=== PATIENT | male | born 1990 | race Caucasian/White ===

== ENCOUNTER 2017-01-14 11:36 | Emergency (ER) | payer SELFPAY ==
[2017-01-14] MEDS ORDERED: PROPARACAINE 0.5% OPHTH DROPS 15 ML BTL RIGHT EYE STA (12:35)
[2017-01-14] MEDS ORDERED: TOBRAMYCIN 0.3% OPHTH DROPS 5 ML BTL RIGHT EYE STA (12:43)
--- NOTE | 2017-01-14 12:48 | ED ---
Eye Problem HPI - General Chief complaint: Eye Problems Stated complaint: FB in eye Time Seen by Provider: 01/14/17 12:21 Source: patient, RN notes reviewed Mode of arrival: ambulatory Limitations: no limitations - History of Present Illness Initial comments: 26-year-old male presents emergency Department chief complaint foreign body right eye. Patient states that something fell on to his right eye yesterday. He said irritation. Patient states she's had no visual changes. Patient's tetanus is up-to-date last 5 years. Patient states that he does have some photophobia. Patient has ALLERGIES sulfa products. - Related Data Home Medications Medication Instructions Recorded Confirmed Loratadine [Claritin] 10 mg PO DAILY 05/04/16 05/04/16 Previous Rx's Medication Instructions Recorded Doxycycline Monohydrate [Monodox] 100 mg PO Q12HR #14 cap 05/04/16 HYDROcodone/APAP 5-325MG [[place] 5] 1 each PO Q4HR PRN #20 tab 05/04/16 Naproxen [Naprosyn] 500 mg PO Q12HR #24 tab 05/04/16 Tobramycin [Tobrex 0.3% Ophth Soln] 1 drop RIGHT EYE Q4HR #5 ml 01/14/17 Allergies Allergy/AdvReac Type Severity Reaction Status Date / Time Sulfa (Sulfonamide Allergy Rash/Hives Verified 01/14/17 11:41 Antibiotics) Review of Systems ROS Statement: Those systems with pertinent positive or pertinent negative responses have been documented in the HPI. ROS Other: All systems not noted in ROS Statement are negative. Past Medical History Past Medical History: No Reported History History of Any Multi-Drug Resistant Organisms: None Reported Past Surgical History: No Surgical Hx Reported Past Psychological History: Depression Smoking Status: Current every day smoker Past Alcohol Use History: None Reported Past Drug Use History: Marijuana General Exam Limitations: no limitations General appearance: alert, in no apparent distress Head exam: Present: atraumatic, normocephalic, normal inspection Eye exam: Present: PERRL, EOMI, conjunctival injection (Moderate right), other ( No foreign body noted on initial exam. There is a corneal abrasion noted using for florescin and Wood's lamp). Absent: normal appearance, scleral icterus, periorbital swelling ENT exam: Present: normal exam, normal oropharynx, mucous membranes moist, TM's normal bilaterally, normal external ear exam Neck exam: Present: normal inspection, full ROM. Absent: tenderness, meningismus, lymphadenopathy Respiratory exam: Present: normal lung sounds bilaterally. Absent: respiratory distress, wheezes, rales, rhonchi, stridor Cardiovascular Exam: Present: regular rate, normal rhythm, normal heart sounds. Absent: systolic murmur, diastolic murmur, rubs, gallop, clicks Course Vital Signs 01/14/17 11:38 Temperature 97.6 F Pulse Rate 98 Respiratory 20 Rate Blood Pressure 135/83 O2 Sat by Pulse 99 Oximetry Medical Decision Making - Medical Decision Making 26-year-old male present emergency department with chief complaint right eye foreign body. Patient had complete relief of symptoms after Paracaine. Patient be discharged Tobrex eye drops. Patient will follow-up with on-call up though Dr. Del Cid. Return parameters were discussed. Disposition Clinical Impression: Corneal abrasion Disposition: HOME SELF-CARE Condition: Stable Instructions: Corneal Abrasion (ED) Additional Instructions: Please return to the Emergency Department if symptoms worsen or any other concerns. Prescriptions: Tobramycin [Tobrex 0.3% Ophth Soln] 1 drop RIGHT EYE Q4HR #5 ml Referrals: Geo Mai MD [Primary Care Provider] - 1-2 days Chaz Del Cid MD [STAFF PHYSICIAN] - 1-2 days Time of Disposition: 12:46
[2017-01-14 13:02] VITALS: BP 132/91; PULSE 77; RESP 16; TEMP 97.7
== END 2017-01-14 13:02 | disposition home or self-care (01) ==
LOC: EC 11:36
DX: S05.01XA Injury of conjunctiva and corneal abrasion without foreign body, right eye, initial encounter (principal); F17.200 Nicotine dependence, unspecified, uncomplicated; Z79.899 Other long term (current) drug therapy; Z88.2 Allergy status to sulfonamides; X58.XXXA Exposure to other specified factors, initial encounter
CPT/HCPCS: 99283

== ENCOUNTER 2017-04-17 10:45 | Emergency (ER) | payer OTHER ==
[2017-04-17 10:50] VITALS: BP 134/81; PULSE 75; RESP 18; TEMP 97.9
--- NOTE | 2017-04-17 11:21 | ED ---
General Adult HPI - General Chief complaint: Wound/Laceration Stated complaint: LACERATION IN LEFT INDEX FINGER Time Seen by Provider: 04/17/17 10:54 Source: patient, RN notes reviewed Mode of arrival: ambulatory Limitations: no limitations - History of Present Illness Initial comments: The patient [id number] male who presents emergency room today with a chief complaint of laceration to the left index finger. He does admit that he was using a hand saw, slipped causing this laceration. Patient states tetanus is up-to-date. Denies any other complaints associated symptoms. States he has full range of motion. - Related Data Home Medications Medication Instructions Recorded Confirmed Dextroamphetamine/Amphetamine 20 mg PO BID 04/17/17 04/17/17 [Adderall] Allergies Allergy/AdvReac Type Severity Reaction Status Date / Time Sulfa (Sulfonamide Allergy Rash/Hives Verified 04/17/17 11:12 Antibiotics) Review of Systems ROS Statement: Those systems with pertinent positive or pertinent negative responses have been documented in the HPI. ROS Other: All systems not noted in ROS Statement are negative. Past Medical History Past Medical History: No Reported History History of Any Multi-Drug Resistant Organisms: None Reported Past Surgical History: No Surgical Hx Reported Past Psychological History: Depression Smoking Status: Current every day smoker Past Alcohol Use History: None Reported Past Drug Use History: Marijuana General Exam - General Exam Comments Initial Comments: General: The patient is awake and alert, in no distress, and does not appear acutely ill. Neck: The neck is supple, there is no tenderness or JVD. Cardiovascular: There is a regular rate and rhythm. No murmur, rub or gallop is appreciated. Respiratory: Lungs are clear to auscultation, respirations are non-labored, breath sounds are equal. No wheezes, stridor, rales, or rhonchi. Musculoskeletal: Full range motion. Sensation intact. Pulses equal bilaterally 2+. Strength 5/5. Neurological: A&O x 3. CN II-XII intact, There are no obvious motor or sensory deficits. Coordination appears grossly intact. Speech is normal. Skin: Patient does have a 1.5 cm linear laceration running angle to the posterior aspect of the left proximal second digit. Psychiatric: Normal mood and affect. Limitations: no limitations Course Vital Signs 04/17/17 10:47 Temperature 97.9 F Pulse Rate 75 Respiratory 18 Rate Blood Pressure 134/81 O2 Sat by Pulse 99 Oximetry Procedures - Procedures Initial comment: 1.5 cm linear laceration running angle to the second left proximal digit. The skin was anesthetized with 1% lidocaine at the head of the metacarpal. The laceration was then cleansed with Betadine and irrigated with normal saline. The wound was inspected, and there was no evidence of injury to deep structures. No foreign body was noted in the wound. A total of 4 skin sutures were placed utilizing 5-0 nylon. Disposition Clinical Impression: Laceration Disposition: HOME SELF-CARE Condition: Good Instructions: Laceration (ED) Additional Instructions: Please return to the emergency room in 8-10 days to have sutures removed. Please watch for any signs of infection which may include increased pain, swelling, redness, fever or chills. Please return to emergency room for any signs of infection do occur. Please use clean soap and water over the area to prevent scabbing over your stitches. Please leave wound covered for the first 24-48 hours and then leave wound open to air. Please return to the emergency room for any other concerns. Referrals: Geo Mai MD [Primary Care Provider] - 1-2 days Time of Disposition: 11:21
== END 2017-04-17 11:36 | disposition home or self-care (01) ==
LOC: EC 10:45
DX: S61.211A Laceration without foreign body of left index finger without damage to nail, initial encounter (principal); F17.200 Nicotine dependence, unspecified, uncomplicated; Z79.899 Other long term (current) drug therapy; Z88.2 Allergy status to sulfonamides; W27.0XXA Contact with workbench tool, initial encounter
CPT/HCPCS: 12001; 99282

== ENCOUNTER 2017-06-10 19:06 | Emergency (ER) | payer OTHER ==
[2017-06-10 19:27] VITALS: BP 133/71; PULSE 65; RESP 18; TEMP 97.5
[2017-06-10] MEDS ORDERED: AZITHROMYCIN 500 MG TAB PO STA (19:45)
[2017-06-10] MEDS ORDERED: cefTRIAXone 250 MG VIAL IM STA (19:45)
--- NOTE | 2017-06-10 19:45 | ED ---
General Adult HPI - General Chief complaint: Urogenital Stated complaint: STD testing Time Seen by Provider: 06/10/17 19:37 Source: patient, RN notes reviewed Mode of arrival: ambulatory Limitations: no limitations - History of Present Illness Initial comments: 26-year-old male presents to the emergency Department chief complaint of concern for STD. Patient was informed by his partner that they are positive for an STD. Patient denies any symptoms at this time. Patient states he just like to be tested and treated.Patient denies any recent fever, chills, shortness of breath, chest pain, back pain, abdominal pain, nausea vomiting, numbness or tingling, dysuria or hematuria, constipation or diarrhea, headaches or visual changes, or any other current symptoms. - Related Data Home Medications Medication Instructions Recorded Confirmed Dextroamphetamine/Amphetamine 20 mg PO BID 04/17/17 04/17/17 [Adderall] Allergies Allergy/AdvReac Type Severity Reaction Status Date / Time Sulfa (Sulfonamide Allergy Rash/Hives Verified 06/10/17 19:26 Antibiotics) Review of Systems ROS Statement: Those systems with pertinent positive or pertinent negative responses have been documented in the HPI. ROS Other: All systems not noted in ROS Statement are negative. Past Medical History Past Medical History: No Reported History History of Any Multi-Drug Resistant Organisms: None Reported Past Surgical History: No Surgical Hx Reported Past Psychological History: Depression Smoking Status: Former smoker Past Alcohol Use History: None Reported Past Drug Use History: Marijuana General Exam Limitations: no limitations General appearance: alert Head exam: Present: atraumatic, normocephalic, normal inspection Eye exam: Present: normal appearance, PERRL, EOMI. Absent: scleral icterus, conjunctival injection, periorbital swelling ENT exam: Present: normal exam, mucous membranes moist Neck exam: Present: normal inspection. Absent: tenderness, meningismus, lymphadenopathy Respiratory exam: Present: normal lung sounds bilaterally. Absent: respiratory distress, wheezes, rales, rhonchi, stridor Cardiovascular Exam: Present: regular rate, normal rhythm, normal heart sounds. Absent: systolic murmur, diastolic murmur, rubs, gallop, clicks Neurological exam: Present: alert, oriented X3 Psychiatric exam: Present: normal affect, normal mood Skin exam: Present: warm, dry, intact, normal color. Absent: rash Course Vital Signs 06/10/17 19:25 Temperature 97.5 F L Pulse Rate 65 Respiratory 18 Rate Blood Pressure 133/71 O2 Sat by Pulse 98 Oximetry Medical Decision Making - Medical Decision Making 26-year-old male presents concern for STDs. This time we did the patient for flexion. Discussed follow-up on results. We discussed return parameters and all questions. Patient stated he understood the plan. He will be discharged. Disposition Clinical Impression: Concern about STD in male without diagnosis Disposition: HOME SELF-CARE Condition: Stable Instructions: Sexually Transmitted Diseases (ED) Additional Instructions: Please use medication as discussed. Please follow up with family doctor if symptoms have not improved over the next two days. Please return to the emergency room if your symptoms increase or worsen or for any other concerns. Referrals: Geo Mai MD [Primary Care Provider] - 1-2 days Time of Disposition: 19:45
== END 2017-06-10 19:58 | disposition home or self-care (01) ==
LOC: EC 19:06
DX: Z11.3 Encounter for screening for infections with a predominantly sexual mode of transmission (principal); Z87.891 Personal history of nicotine dependence; Z88.2 Allergy status to sulfonamides; Z79.899 Other long term (current) drug therapy
CPT/HCPCS: 87591; 87491; 87070; 99282; 96372; J0696; 87205

== ENCOUNTER 2018-07-09 15:16 | Emergency (ER) | payer OTHER ==
[2018-07-09 16:09] VITALS: RESP 16
[2018-07-09] MEDS ORDERED: cefTRIAXone 250 MG VIAL IM STA (17:06)
[2018-07-09] MEDS ORDERED: AZITHROMYCIN 500 MG TAB PO STA (17:07)
--- NOTE | 2018-07-09 17:07 | ED ---
Male Urogenital HPI - General Chief complaint: Urogenital Stated complaint: groin pain Time Seen by Provider: 07/09/18 16:35 Source: patient, RN notes reviewed, old records reviewed Mode of arrival: ambulatory Limitations: no limitations - History of Present Illness Initial comments: 27-year-old male presents emergency department today with chief complaint of right-sided groin pain. He reports having this pain for the past 2-3 days. He reports it is a lot of heavy weightlifting with his job. Patient states that he 's had frequent urination. He reports the past that he was diagnosed with sexual transmitted infection but no cyanosis or hernia. Patient states that the pain seems to stay on the right side of his groin and scrotum. Not worse with ambulation. He denies any nausea vomiting or diarrhea. Denies any fevers or chills. MD Complaint: testicle pain - Related Data Home Medications Medication Instructions Recorded Confirmed No Known Home Medications 07/09/18 07/09/18 Allergies Allergy/AdvReac Type Severity Reaction Status Date / Time Sulfa (Sulfonamide Allergy Rash/Hives Verified 07/09/18 16:53 Antibiotics) Review of Systems ROS Statement: Those systems with pertinent positive or pertinent negative responses have been documented in the HPI. ROS Other: All systems not noted in ROS Statement are negative. Past Medical History Past Medical History: No Reported History History of Any Multi-Drug Resistant Organisms: None Reported Past Surgical History: No Surgical Hx Reported Additional Past Surgical History / Comment(s): wisdom teeth. Past Psychological History: Depression Smoking Status: Former smoker Past Alcohol Use History: None Reported Past Drug Use History: Marijuana General Exam - General Exam Comments Initial Comments: 27-year-old male. Alert and oriented. No distress. Limitations: no limitations Head exam: Present: atraumatic, normocephalic, normal inspection Eye exam: Present: normal appearance, PERRL, EOMI. Absent: scleral icterus, conjunctival injection, periorbital swelling ENT exam: Present: normal exam, mucous membranes moist Neck exam: Present: normal inspection. Absent: tenderness, meningismus, lymphadenopathy Respiratory exam: Present: normal lung sounds bilaterally. Absent: respiratory distress, wheezes, rales, rhonchi, stridor Cardiovascular Exam: Present: regular rate, normal rhythm, normal heart sounds. Absent: systolic murmur, diastolic murmur, rubs, gallop, clicks GI/Abdominal exam: Present: soft, normal bowel sounds. Absent: distended, tenderness, guarding, rebound, rigid exam: Present: normal inspection, testicular tenderness (Left testicular tenderness, Palpable reducible inguinal hernia on L scrotal canal with coughing. ) Extremities exam: Present: normal inspection, full ROM, normal capillary refill. Absent: tenderness, pedal edema, joint swelling, calf tenderness Back exam: Present: normal inspection Neurological exam: Present: alert, oriented X3, CN II-XII intact Psychiatric exam: Present: normal affect, normal mood Skin exam: Present: warm, dry, intact, normal color. Absent: rash Course Vital Signs 07/09/18 16:06 Temperature 98.2 F Pulse Rate 61 Respiratory 16 Rate Blood Pressure 132/81 O2 Sat by Pulse 100 Oximetry Medical Decision Making - Medical Decision Making 27-year-old male presents emergency department today with chief complaint of right-sided scrotal and groin pain. On exam he had no significant tenderness on the groin. I do appreciate what I feel to be a left inguinal hernia. Patient has some ascites testicular tenderness as well. He is concern for STD. Urinalysis at this time is clear. However will treat the Patient for Rocephin and azithromycin with his concern for STD. Scrotal ultrasound was completed and negative for any acute process. At this time after examination he does report he is in significant pain and tender. Given dose of pain medication. Discussed his close follow-up with primary care physician and on- call surgeon for permanent feel to be inguinal hernia. Patient history plan will comply. Return parameters were discussed. - Lab Data Lab Results 07/09/18 Range/Units 17:08 Urine Color Light Yellow Urine Appearance Clear (Clear) Urine pH 6.0 (5.0-8.0) Ur Specific [place] 1.011 (1.001-1.035) Urine Protein Negative (Negative) Urine Glucose (UA) Negative (Negative) Urine Ketones Negative (Negative) Urine Blood Negative (Negative) Urine Nitrite Negative (Negative) Urine Bilirubin Negative (Negative) Urine Urobilinogen <2.0 (<2.0) mg/dL Ur Leukocyte Esterase Negative (Negative) Disposition Clinical Impression: Groin strain, Reducible left inguinal hernia Disposition: HOME SELF-CARE Condition: Good Instructions: Groin Strain (ED) Additional Instructions: Patient advised to follow-up with primary care physician and surgeon. Return to the emergency department if any alarming signs or symptoms occur. Is patient prescribed a controlled substance at d/c from ED?: No Referrals: Geo Mai MD [Primary Care Provider] - 1-2 days Colleen Medina MD [STAFF PHYSICIAN] - 1-2 days Time of Disposition: 18:41
[2018-07-09 17:22] LABS: Appearance,Urine Clear (Clear); Bilirubin,Urine Negative (Negative); Blood,Urine Negative (Negative); Color,Urine Light Yellow; Glucose,Urine (UA) Negative (Negative); Ketones,Urine Negative (Negative); Leukocyte Esterase,Urine Negative (Negative); Nitrite,Urine Negative (Negative); Protein,Urine Negative (Negative); Specific Gravity,Urine 1.011 (1.001-1.035); Urobilinogen,Urine <2.0 mg/dL (<2.0)
--- NOTE | 2018-07-09 18:30 | US ---
EXAMINATION TYPE: US scrotum with doppler. Grayscale and color Doppler Duplex imaging performed of t cesar scrotum. DATE OF EXAM: 07/09/2018 COMPARISON: NONE CLINICAL HISTORY: Pain. Bilateral pain EXAM MEASUREMENTS: TESTICLES: Right Testicle: 2.9 x 2.8 x 3.3 cm Left Testicle: 3.5 x 2.6 x 3.9 cm EPIDIDYMIS HEAD: Right Epididymis: Not well visualized. Left Epididymis: Not well visualized. Doppler performed to assess for testicular vascularity; good bilateral color flow and waveforms are s een. There is no evidence of testicular torsion. Presence of hydroceles: Small amount of fluid seen bilaterally. Presence of varicoceles: No IMPRESSION: NO ACUTE PROCESS.
[2018-07-09] MEDS ORDERED: ACET/COD 300 MG/30 MG STARTER PACK 6 TAB BTL PO STA (18:48)
[2018-07-09 19:04] VITALS: BP 130/78; PULSE 78; TEMP 97.9
== END 2018-07-09 19:02 | disposition home or self-care (01) ==
LOC: EC 15:16
DX: S39.011A Strain of muscle, fascia and tendon of abdomen, initial encounter (principal); K40.90 Unilateral inguinal hernia, without obstruction or gangrene, not specified as recurrent; Z88.2 Allergy status to sulfonamides; Z87.891 Personal history of nicotine dependence; X50.0XXA Overexertion from strenuous movement or load, initial encounter; Y92.69 Other specified industrial and construction area as the place of occurrence of the external cause; Y99.0 Civilian activity done for income or pay
CPT/HCPCS: 81003; 87491; 87591; 93975; 76870; 99284; 96372; J0696

== ENCOUNTER 2019-02-19 21:16 | Emergency (ER) | payer OTHER ==
[2019-02-19 22:23] VITALS: TEMP 98.8
[2019-02-19] MEDS ORDERED: SODIUM CHLORIDE 0.9% 1,000 ML IV STA (23:00)
[2019-02-19] MEDS ORDERED: HYDROmorphone 0.5 MG/0.5 ML SYRINGE IVP STA (23:00)
[2019-02-19] MEDS ORDERED: ONDANSETRON 4 MG/2 ML VIAL IVP STA (23:00)
--- NOTE | 2019-02-19 23:15 | ED ---
Abdominal Pain HPI - General Chief Complaint: Abdominal Pain Stated Complaint: Hernia Time Seen by Provider: 02/19/19 22:37 Source: patient Mode of arrival: ambulatory Limitations: no limitations - History of Present Illness Initial Comments: 28-year-old male patient with a known right inguinal hernia diagnosed in June presents to the emergency department today for evaluation of severe lower abdominal pain. Patient states he always has pain around a 3-4 out of 10 on the pain scale to the right inguinal region. Patient states that the pain today has been significantly worse at 8-9 out of 10 on the pain scale. Patient states he has been nauseated but has not vomited. States she's been unable to eat and drink. States he has had some chills but denies any fever. Patient states that he feels like he has to push harder to urinate. Denies any hematuria or dysuria. Denies any back pain. States he is passing gas but has not had a bowel movement today. Patient denies any recent rash, shortness breath, chest pain, back pain, numbness, tingling, dizziness, weakness, headache, visual changes, or any other complaints. - Related Data Previous Rx's Medication Instructions Recorded Dicyclomine [Bentyl] 20 mg PO QID #12 tablet 02/20/19 Allergies Allergy/AdvReac Type Severity Reaction Status Date / Time Sulfa (Sulfonamide Allergy Rash/Hives Verified 02/19/19 22:30 Antibiotics) Review of Systems ROS Statement: Those systems with pertinent positive or pertinent negative responses have been documented in the HPI. ROS Other: All systems not noted in ROS Statement are negative. Past Medical History Past Medical History: No Reported History Additional Past Medical History / Comment(s): hernia History of Any Multi-Drug Resistant Organisms: None Reported Past Surgical History: No Surgical Hx Reported Additional Past Surgical History / Comment(s): wisdom teeth. Past Psychological History: Depression Smoking Status: Former smoker Past Alcohol Use History: None Reported Past Drug Use History: Marijuana General Exam Limitations: no limitations General appearance: alert, in no apparent distress, other (Physical well- developed, well-nourished adult male patient in no acute distress. Vital signs upon presentation are temperature 98.8F, pulse 95, respirations 20, blood pre ssure 112/69, pulse ox 99% on room air.) Eye exam: Present: normal appearance, PERRL, EOMI. Absent: scleral icterus, conjunctival injection, periorbital swelling ENT exam: Present: normal exam, normal oropharynx, mucous membranes moist Respiratory exam: Present: normal lung sounds bilaterally. Absent: respiratory distress, wheezes, rales, rhonchi, stridor Cardiovascular Exam: Present: regular rate, normal rhythm, normal heart sounds. Absent: systolic murmur, diastolic murmur, rubs, gallop, clicks GI/Abdominal exam: Present: soft, tenderness (Generalized lower abdominal tenderness, worse over the right lower quadrant and right groin.), guarding, normal bowel sounds. Absent: distended, rebound, rigid Neurological exam: Present: alert, oriented X3, CN II-XII intact Psychiatric exam: Present: normal affect, normal mood Skin exam: Present: warm, dry, intact, normal color. Absent: rash Course Vital Signs 02/19/19 02/20/19 22:20 01:12 Temperature 98.8 F Pulse Rate 95 93 Respiratory 20 18 Rate Blood Pressure 112/69 114/70 O2 Sat by Pulse 99 99 Oximetry Medical Decision Making - Medical Decision Making 28-year-old male patient presented to the emergency department today for evaluation of lower abdominal pain. Patient has known right inguinal hernia and is waiting for his insurance to go through to have the surgery. Patient states the pain increased today. Physical examination did reveal lower abdominal tenderness and guarding. Right groin tenderness. Labs reviewed and are unremarkable. Lactic acid negative. CT abdomen and pelvis with contrast was ob tained to rule out appendicitis and hernia incarceration, CAT scan showed evidence for diffusely fluid filled small bowel loops consistent with gastroenteritis. No evidence for acute appendicitis. Incarceration of the hernia is unlikely, this is not mentioned on CT and lactic acid was negative. D id discuss findings and results with the patient was given Bentyl for pain control. He is instructed to follow-up with his primary care physician for recheck in 1-2 days. Return parameters were discussed in detail. He verbalizes understanding and agrees with this plan. - Lab Data Result diagrams: 02/19/19 23:40 02/19/19 23:40 Lab Results 02/19/19 02/19/19 02/19/19 Range/Units 23:20 23:40 23:40 WBC 8.1 (3.8-10.6) k/uL RBC 4.51 (4.30-5.90) m/uL Hgb 13.6 (13.0-17.5) gm/dL Hct 38.9 L (39.0-53.0) % MCV 86.2 (80.0-100.0) fL MCH 30.2 (25.0-35.0) pg MCHC 35.0 (31.0-37.0) g/dL RDW 15.0 (11.5-15.5) % Plt Count 249 (150-450) k/uL Neutrophils % 77 % Lymphocytes % 13 % Monocytes % 5 % Eosinophils % 3 % Basophils % 0 % Neutrophils # 6.2 (1.3-7.7) k/uL Lymphocytes # 1.1 (1.0-4.8) k/uL Monocytes # 0.4 (0-1.0) k/uL Eosinophils # 0.3 (0-0.7) k/uL Basophils # 0.0 (0-0.2) k/uL Sodium 142 (137-145) mmol/L Potassium 4.3 (3.5-5.1) mmol/L Chloride 105 (98-107) mmol/L Carbon Dioxide 28 (22-30) mmol/L Anion Gap 9 mmol/L BUN 19 (9-20) mg/dL Creatinine 1.00 (0.66-1.25) mg/dL Est GFR (CKD-EPI)AfAm >90 (>60 ml/min/1.73 sqM) Est GFR (CKD-EPI)NonAf >90 (>60 ml/min/1.73 sqM) Glucose 93 (74-99) mg/dL Plasma Lactic Acid Ethan (0.7-2.0) mmol/L Calcium 10.0 (8.4-10.2) mg/dL Total Bilirubin 0.8 (0.2-1.3) mg/dL AST 18 (17-59) U/L ALT 27 (21-72) U/L Alkaline Phosphatase 49 (38-126) U/L Total Protein 7.8 (6.3-8.2) g/dL Albumin 4.7 (3.5-5.0) g/dL Amylase 60 (30-110) U/L Lipase 72 (23-300) U/L Urine Color Yellow Urine Appearance Clear (Clear) Urine pH 6.0 (5.0-8.0) Ur Specific [place] 1.030 (1.001-1.035) Urine Protein Trace H (Negative) Urine Glucose (UA) Negative (Negative) Urine Ketones Negative (Negative) Urine Blood Negative (Negative) Urine Nitrite Negative (Negative) Urine Bilirubin Negative (Negative) Urine Urobilinogen 3.0 (<2.0) mg/dL Ur Leukocyte Esterase Negative (Negative) 02/19/19 Range/Units 23:40 WBC (3.8-10.6) k/uL RBC (4.30-5.90) m/uL Hgb (13.0-17.5) gm/dL Hct (39.0-53.0) % MCV (80.0-100.0) fL MCH (25.0-35.0) pg MCHC (31.0-37.0) g/dL RDW (11.5-15.5) % Plt Count (150-450) k/uL Neutrophils % % Lymphocytes % % Monocytes % % Eosinophils % % Basophils % % Neutrophils # (1.3-7.7) k/uL Lymphocytes # (1.0-4.8) k/uL Monocytes # (0-1.0) k/uL Eosinophils # (0-0.7) k/uL Basophils # (0-0.2) k/uL Sodium (137-145) mmol/L Potassium (3.5-5.1) mmol/L Chloride (98-107) mmol/L Carbon Dioxide (22-30) mmol/L Anion Gap mmol/L BUN (9-20) mg/dL Creatinine (0.66-1.25) mg/dL Est GFR (CKD-EPI)AfAm (>60 ml/min/1.73 sqM) Est GFR (CKD-EPI)NonAf (>60 ml/min/1.73 sqM) Glucose (74-99) mg/dL Plasma Lactic Acid Ethan 0.7 (0.7-2.0) mmol/L Calcium (8.4-10.2) mg/dL Total Bilirubin (0.2-1.3) mg/dL AST (17-59) U/L ALT (21-72) U/L Alkaline Phosphatase (38-126) U/L Total Protein (6.3-8.2) g/dL Albumin (3.5-5.0) g/dL Amylase (30-110) U/L Lipase (23-300) U/L Urine Color Urine Appearance (Clear) Urine pH (5.0-8.0) Ur Specific [place] (1.001-1.035) Urine Protein (Negative) Urine Glucose (UA) (Negative) Urine Ketones (Negative) Urine Blood (Negative) Urine Nitrite (Negative) Urine Bilirubin (Negative) Urine Urobilinogen (<2.0) mg/dL Ur Leukocyte Esterase (Negative) - Radiology Data Radiology results: report reviewed, image reviewed CT abdomen and pelvis was obtained with contrast. The patient in its entirety. Impression by Dr. Mast shows diffusely fluid filled small bowel with hyperemia, correlate with gastroenteritis. Disposition Clinical Impression: Abdominal pain Disposition: HOME SELF-CARE Condition: Good Instructions (If sedation given, give patient instructions): Abdominal Pain (ED) Additional Instructions: Start with clear liquid diet and advance tolerated. Take medications as directed. Follow-up through primary care physician for recheck in 1-2 days. Return to the emergency department immediately for any new, worsening, or concerning symptoms. Prescriptions: Dicyclomine [Bentyl] 20 mg PO QID #12 tablet Is patient prescribed a controlled substance at d/c from ED?: No Referrals: Geo Mai MD [Primary Care Provider] - 1-2 days Time of Disposition: 00:55
[2019-02-20 00:12] LABS: Basophils % (A) 0 %; Eosinophils # (A) 0.3 k/uL (0-0.7); Eosinophils % (A) 3 %; HCT 38.9 % (39.0-53.0); HGB 13.6 gm/dL (13.0-17.5); Lymphocytes # (A) 1.1 k/uL (1.0-4.8); Lymphocytes % (A) 13 %; MCH 30.2 pg (25.0-35.0); MCV 86.2 fL (80.0-100.0); Mean Platelet Volume 8.9; Monocytes # (A) 0.4 k/uL (0-1.0); Monocytes % (A) 5 %; Neutrophils # (A) 6.2 k/uL (1.3-7.7); Neutrophils % (A) 77 %; Platelet Count 249 k/uL (150-450); RBC 4.51 m/uL (4.30-5.90); WBC 8.1 k/uL (3.8-10.6)
--- NOTE | 2019-02-20 00:22 | CT ---
EXAM: CT Abdomen and Pelvis With Intravenous Contrast CLINICAL HISTORY: ITS.REASON CT Reason: Pain TECHNIQUE: Axial computed tomography images of the abdomen and pelvis with intravenous contrast. CTDI is 14 mGy and DLP is 585 mGy-cm. This CT exam was performed using one or more of the following dose reduction techniques: automated exposure control, adjustment of the mA and/or kV according to patient size, and/or use of iterative reconstruction technique. COMPARISON: No relevant prior studies available. FINDINGS: Lung bases: No mass. No consolidation. ABDOMEN: Liver: Unremarkable. Gallbladder and bile ducts: Unremarkable. Pancreas: Unremarkable. Spleen: Unremarkable. Adrenals: Unremarkable. Kidneys and ureters: No hydronephrosis. Stomach and bowel: No bowel obstruction or bowel wall thickening. Diffusely fluid-filled small bowel with hyperemia. PELVIS: Appendix: No evidence of appendicitis. Bladder: Unremarkable. Reproductive: Unremarkable. ABDOMEN and PELVIS: Intraperitoneal space: Unremarkable. Bones/joints: No acute fractures. Soft tissues: Unremarkable. Vasculature: No abdominal aortic aneurysm. Lymph nodes: No enlarged lymph nodes. IMPRESSION: Diffusely fluid-filled small bowel with hyperemia, correlate with gastroenteritis.
[2019-02-20 00:28] LABS: Appearance,Urine Clear (Clear); Bilirubin,Urine Negative (Negative); Blood,Urine Negative (Negative); Color,Urine Yellow; Glucose,Urine (UA) Negative (Negative); Ketones,Urine Negative (Negative); Leukocyte Esterase,Urine Negative (Negative); Nitrite,Urine Negative (Negative); Protein,Urine Trace (Negative)
[2019-02-20 00:39] LABS: ALT 27 U/L (21-72); AST 18 U/L (17-59); Albumin 4.7 g/dL (3.5-5.0); Alkaline Phosphatase 49 U/L (38-126); Amylase 60 U/L (30-110); Anion Gap 9 mmol/L; Blood Urea Nitrogen 19 mg/dL (9-20); Carbon Dioxide 28 mmol/L (22-30); Chloride 105 mmol/L (98-107); Glucose 93 mg/dL (74-99); Lipase 72 U/L (23-300); Potassium 4.3 mmol/L (3.5-5.1); Sodium 142 mmol/L (137-145); Total Bilirubin 0.8 mg/dL (0.2-1.3); Total Protein 7.8 g/dL (6.3-8.2)
[2019-02-20] MEDS ORDERED: DICYCLOMINE 20 MG TAB PO STA (00:55)
[2019-02-20 01:16] VITALS: BP 114/70; PULSE 93; RESP 18
== END 2019-02-20 01:12 | disposition home or self-care (01) ==
LOC: EC 21:16
DX: K52.9 Noninfective gastroenteritis and colitis, unspecified (principal); Z87.19 Personal history of other diseases of the digestive system; Z87.891 Personal history of nicotine dependence; Z88.2 Allergy status to sulfonamides
CPT/HCPCS: 36415; 80053; 82150; 83605; 83690; 85025; 81003; 74177; 99284; 96374; 96375; 96361; J2405; J1170; Q9967

== ENCOUNTER 2019-03-08 18:31 | Emergency (ER) | payer OTHER ==
[2019-03-08 19:00] VITALS: TEMP 98.2
[2019-03-08] MEDS ORDERED: ONDANSETRON 4 MG/2 ML VIAL IVP STA (19:12)
[2019-03-08] MEDS ORDERED: MORPHINE SULFATE 4 MG/ML SYRINGE IVP STA (19:12)
[2019-03-08] MEDS ORDERED: HYDROmorphone 1 MG/ML 1 ML SYRINGE IVP STA ×2 (19:33→20:37)
[2019-03-08 19:40] LABS: Basophils % (A) 0 %; Eosinophils # (A) 0.1 k/uL (0-0.7); Eosinophils % (A) 0 %; HCT 38.6 % (39.0-53.0); HGB 13.4 gm/dL (13.0-17.5); Lymphocytes # (A) 1.4 k/uL (1.0-4.8); Lymphocytes % (A) 10 %; MCH 30.4 pg (25.0-35.0); MCHC 34.7 g/dL (31.0-37.0); MCV 87.4 fL (80.0-100.0); Mean Platelet Volume 7.1; Monocytes # (A) 0.5 k/uL (0-1.0); Monocytes % (A) 4 %; Neutrophils # (A) 12.2 k/uL (1.3-7.7); Neutrophils % (A) 86 %; Platelet Count 333 k/uL (150-450); RBC 4.41 m/uL (4.30-5.90); WBC 14.2 k/uL (3.8-10.6)
[2019-03-08 19:47] LABS: ALT 25 U/L (21-72); AST 16 U/L (17-59); Albumin 4.6 g/dL (3.5-5.0); Alkaline Phosphatase 45 U/L (38-126); Anion Gap 9 mmol/L; Blood Urea Nitrogen 21 mg/dL (9-20); Calcium 10.2 mg/dL (8.4-10.2); Carbon Dioxide 25 mmol/L (22-30); Chloride 106 mmol/L (98-107); Glucose 104 mg/dL (74-99); Potassium 4.4 mmol/L (3.5-5.1); Sodium 140 mmol/L (137-145); Total Bilirubin 0.4 mg/dL (0.2-1.3); Total Protein 7.5 g/dL (6.3-8.2)
[2019-03-08 19:51] LABS: Prothrombin Time 10.4 sec (9.0-12.0)
--- NOTE | 2019-03-08 20:04 | US ---
EXAMINATION TYPE: US scrotum with doppler. Grayscale and color Doppler Duplex imaging performed of mary guerrero scrotum. DATE OF EXAM: 03/08/2019 COMPARISON: 07/09/2018 CLINICAL HISTORY: Pain. Left side hernia surgery this morning. Left testicle severe pain, bruising an d swelling. R/O torsion EXAM MEASUREMENTS: TESTICLES: Right Testicle: 4.5 x 2.0 x 3.5 cm Left Testicle: 4.1 x 2.6 x 3.1 cm EPIDIDYMIS HEAD: Right Epididymis: 1.4 x .7 x .8 cm Left Epididymis: .8 x .7 cm Doppler performed to assess for testicular vascularity; good bilateral color flow and waveforms are s een. There is no evidence of testicular torsion. Presence of hydroceles: No Presence of varicoceles: No IMPRESSION: Negative exam. No testicular torsion or mass. No significant fluid.
--- NOTE | 2019-03-08 20:22 | ED ---
Male Urogenital HPI <Sukhdev Goodrich - Last Filed: 03/08/19 21:00> - General Source: patient, RN notes reviewed, old records reviewed Mode of arrival: ambulatory Limitations: no limitations <Ina Carrero - Last Filed: 03/09/19 08:47> - General Chief complaint: Urogenital Stated complaint: post op hernia pain, male gu Time Seen by Provider: 03/08/19 19:05 - History of Present Illness Initial comments: Patient is a 28-year-old male who presents emergency Department today with complaint of onset of left testicular pain, and noticing blue discoloration over his left side of his scrotum for the past 2 hours. Patient states that his symptoms started today after he a left inguinal hernia repair surgery. This was done by Dr. Mcintosh. Patient reports he is able to urinate today. (Ina Carrero) - Related Data Home Medications Medication Instructions Recorded Confirmed Dicyclomine [Bentyl] 20 mg PO QID PRN 03/08/19 03/08/19 [place](Unknown) 1 tab PO ONCE 03/08/19 03/08/19 Allergies Allergy/AdvReac Type Severity Reaction Status Date / Time Sulfa (Sulfonamide Allergy Rash/Hives Verified 03/08/19 19:08 Antibiotics) Review of Systems ROS Other: All systems not noted in ROS Statement are negative. <Sukhdev Goodrich - Last Filed: 03/08/19 21:00> ROS Other: All systems not noted in ROS Statement are negative. <Ina Carrero - Last Filed: 03/09/19 08:47> ROS Statement: Those systems with pertinent positive or pertinent negative responses have been documented in the HPI. Past Medical History Past Medical History: No Reported History Additional Past Medical History / Comment(s): hernia History of Any Multi-Drug Resistant Organisms: None Reported Past Surgical History: Hernia Repair Additional Past Surgical History / Comment(s): wisdom teeth. Past Psychological History: Depression Smoking Status: Former smoker Past Alcohol Use History: None Reported Past Drug Use History: Marijuana <Ina Carrero - Last Filed: 03/09/19 08:47> General Exam Limitations: no limitations General appearance: alert, in no apparent distress Head exam: Present: atraumatic, normocephalic, normal inspection Eye exam: Present: normal appearance, PERRL, EOMI. Absent: scleral icterus, conjunctival injection, periorbital swelling ENT exam: Present: normal exam, mucous membranes moist Neck exam: Present: normal inspection. Absent: tenderness, meningismus, lymphadenopathy Respiratory exam: Present: normal lung sounds bilaterally. Absent: respiratory distress, wheezes, rales, rhonchi, stridor Cardiovascular Exam: Present: regular rate, normal rhythm, normal heart sounds. Absent: systolic murmur, diastolic murmur, rubs, gallop, clicks GI/Abdominal exam: Present: soft, normal bowel sounds, other. Absent: distended, tenderness, guarding, rebound, rigid, hernia (Incision site over the left inguinal region from recent hernia repair.) exam: Present: scrotal swelling (Some minimal left-sided scrotal swelling with evidence of ecchymosis over the left side of the scrotum. Testicular tenderness noted.). Absent: normal inspection Extremities exam: Present: normal inspection, full ROM, normal capillary refill. Absent: tenderness, pedal edema, joint swelling, calf tenderness Back exam: Present: normal inspection Neurological exam: Present: alert, oriented X3, CN II-XII intact <Ina Carrero - Last Filed: 03/09/19 08:47> - General Exam Comments Initial Comments: 28-year-old male. Patient appears in significant distress. (Ina Carrero) Course Vital Signs 03/08/19 03/08/19 03/08/19 18:56 19:43 21:55 Temperature 98.2 F Pulse Rate 74 77 Respiratory 18 16 Rate Blood Pressure 126/78 131/86 123/86 O2 Sat by Pulse 99 100 Oximetry Medical Decision Making - Lab Data Result diagrams: 03/08/19 19:25 03/08/19 19:25 <Sukhdev Goodrich - Last Filed: 03/08/19 21:00> - Lab Data Result diagrams: 03/08/19 19:25 03/08/19 19:25 - Radiology Data Radiology results: report reviewed <Ina Carrero - Last Filed: 03/09/19 08:47> - Medical Decision Making 28-year-old male presents for his arm today with complaints of left testicular bluish discoloration significant tenderness after left inguinal hernia repair. This is number Dr. Mckeon at [place]. A stat ultrasound was completed and this is negative for torsion. With recent surgery will have Patient have a CT of the abdomen and pelvis. Patient case transferred to Dr. Goodrich at 8:30 pm. (Ina Carrero) - Lab Data Lab Results 03/08/19 03/08/19 03/08/19 Range/Units 19:25 19:25 19:25 WBC 14.2 H (3.8-10.6) k/uL RBC 4.41 (4.30-5.90) m/uL Hgb 13.4 (13.0-17.5) gm/dL Hct 38.6 L (39.0-53.0) % MCV 87.4 (80.0-100.0) fL MCH 30.4 (25.0-35.0) pg MCHC 34.7 (31.0-37.0) g/dL RDW 13.0 (11.5-15.5) % Plt Count 333 (150-450) k/uL Neutrophils % 86 % Lymphocytes % 10 % Monocytes % 4 % Eosinophils % 0 % Basophils % 0 % Neutrophils # 12.2 H (1.3-7.7) k/uL Lymphocytes # 1.4 (1.0-4.8) k/uL Monocytes # 0.5 (0-1.0) k/uL Eosinophils # 0.1 (0-0.7) k/uL Basophils # 0.0 (0-0.2) k/uL PT 10.4 (9.0-12.0) sec INR 1.0 (<1.2) APTT 25.0 (22.0-30.0) sec Sodium 140 (137-145) mmol/L Potassium 4.4 (3.5-5.1) mmol/L Chloride 106 (98-107) mmol/L Carbon Dioxide 25 (22-30) mmol/L Anion Gap 9 mmol/L BUN 21 H (9-20) mg/dL Creatinine 1.12 (0.66-1.25) mg/dL Est GFR (CKD-EPI)AfAm >90 (>60 ml/min/1.73 sqM) Est GFR (CKD-EPI)NonAf 90 (>60 ml/min/1.73 sqM) Glucose 104 H (74-99) mg/dL Calcium 10.2 (8.4-10.2) mg/dL Total Bilirubin 0.4 (0.2-1.3) mg/dL AST 16 L (17-59) U/L ALT 25 (21-72) U/L Alkaline Phosphatase 45 (38-126) U/L Total Protein 7.5 (6.3-8.2) g/dL Albumin 4.6 (3.5-5.0) g/dL - Radiology Data Doppler US is negative for torsion. CT abdomen and pelvis shows recent surgery site in left inguinal region, no abscess or hematoma. (Ina Carrero) Disposition Is patient prescribed a controlled substance at d/c from ED?: No <Sukhdev Goodrich - Last Filed: 03/08/19 21:00> <Ina Carrero - Last Filed: 03/09/19 08:47> Clinical Impression: Postoperative pain Disposition: HOME SELF-CARE Condition: Good Instructions (If sedation given, give patient instructions): Pain Management (ED) Referrals: Geo Mai MD [Primary Care Provider] - 1-2 days
[2019-03-08] MEDS ORDERED: HYDROmorphone 0.5 MG/0.5 ML SYRINGE IVP STA (20:25)
--- NOTE | 2019-03-08 20:57 | CT ---
EXAMINATION TYPE: CT abdomen pelvis w con DATE OF EXAM: 03/08/2019 COMPARISON: 02/20/2019 HISTORY: Testicular pain, Hernia repair sx today CT DLP: 695.5 mGycm Automated exposure control for dose reduction was used. TECHNIQUE: Helical acquisition of images was performed from the lung bases through the pelvis. CONTRAST: Performed without Oral Contrast and with IV Contrast, patient injected with 100 mL of Isovue 300. FINDINGS: Lung bases are clear. There is no pleural effusion. Heart size is normal. Stomach liver spleen pancreas gallbladder appear normal. Bile ducts are not dilated. There is no adre nal mass. Kidneys show satisfactory contrast opacification. There is no hydronephrosis. Ureters are not dilated . There is no retroperitoneal adenopathy. There are some air bubbles in the left inguinal region rela jarod to recent surgery. There are left inguinal surgical clips. There is no evidence of hernia. Bladde r distends smoothly. There is no pelvic mass. There is no free fluid in the pelvis. There is some sof t tissue air extending into the left side of the scrotum. There is no sign of a bowel obstruction. There is no mesenteric edema. There is no ascites or free ai r. IMPRESSION: RECENT POSTSURGICAL CHANGES IN THE LEFT INGUINAL REGION. No evidence of a hematoma or abscess.
[2019-03-08 21:57] VITALS: BP 123/86; PULSE 77; RESP 16
== END 2019-03-08 21:20 | disposition home or self-care (01) ==
LOC: EC 18:31
DX: G89.18 Other acute postprocedural pain (principal); N50.812 Left testicular pain; L81.9 Disorder of pigmentation, unspecified; Z87.891 Personal history of nicotine dependence; Z79.899 Other long term (current) drug therapy; Z88.2 Allergy status to sulfonamides; Z98.890 Other specified postprocedural states; Z53.8 Procedure and treatment not carried out for other reasons
CPT/HCPCS: 36415; 80053; 85025; 85610; 85730; 93975; 76870; 74177; 99284; 96374; 96375 ×2; 96376; J2270; J2405; J1170; Q9967

== ENCOUNTER 2019-03-11 00:25 | Emergency (ER) | payer OTHER ==
[2019-03-11] MEDS ORDERED: MORPHINE SULFATE 4 MG/ML SYRINGE IM STA ×2 (02:41→04:00)
--- NOTE | 2019-03-11 03:36 | US ---
EXAM: US Scrotum CLINICAL HISTORY: ITS.REASON US Reason: Pain TECHNIQUE: Real-time ultrasound of the scrotum with color Doppler and image documentation. COMPARISON: No relevant prior studies available. FINDINGS: Right testicle: Unremarkable. No mass. No torsion. Left testicle: Unremarkable. No mass. No torsion. Epididymides: Right epididymal cyst Scrotum: Unremarkable. IMPRESSION: No acute findings.
--- NOTE | 2019-03-11 03:56 | ED ---
General Adult HPI - General Chief complaint: Abdominal Pain Stated complaint: Post Op Pain Time Seen by Provider: 03/11/19 01:58 Source: patient, RN notes reviewed, old records reviewed Mode of arrival: ambulatory Limitations: no limitations - History of Present Illness Initial comments: 28-year-old male patient past medical history left inguinal hernia repair on 03/07/2019 [facility] ED with pain in his scrotum bilaterally. Patient worse and he has a pain in his scrotum since the initial surgery. Patient has been seen 2 prior times for this. Patient was evaluated today at [facility]. Due to limitation of ultrasound patient was transferred to [facility] ED via private vehicle noted to have an ultrasound to rule out testicular torsion. Denies any other complaints today. Patient denies any chest pain shortness of breath abdominal pain nausea vomiting diarrhea, fevers or chills. Systemic: Pt denies fatigue, myalgia, fever/chills, rash. Pt denies weakness, night sweats, weight loss. Neuro: Pt denies headache, visual disturbances, syncope or pre-syncope. HEENT: Pt denies ocular discharge or irritation, otalgia, rhinorrhea, ph aryngitis or notable lymphadenopathy. Cardiopulmonary: Pt denies chest pain, SOB, heart palpitations, dyspnea on exertion. Abdominal/GI: Pt denies abdominal pain, n/v/d. : Pt denies dysuria, burning w/ urination, frequency/urgency. Denies new onset urinary or bowel incontinence. MSK: Pt denies myalgia, loss of strength or function in extremities. Neuro: Pt denies new onset weakness, paresthesias. - Related Data Home Medications Medication Instructions Recorded Confirmed Lockhart(Unknown) 1 tab PO ONCE 03/08/19 03/11/19 Allergies Allergy/AdvReac Type Severity Reaction Status Date / Time Sulfa (Sulfonamide Allergy Rash/Hives Verified 03/08/19 19:08 Antibiotics) Review of Systems ROS Statement: Those systems with pertinent positive or pertinent negative responses have been documented in the HPI. ROS Other: All systems not noted in ROS Statement are negative. Past Medical History Past Medical History: No Reported History Additional Past Medical History / Comment(s): hernia History of Any Multi-Drug Resistant Organisms: None Reported Past Surgical History: Hernia Repair Additional Past Surgical History / Comment(s): wisdom teeth. Past Psychological History: Depression Smoking Status: Former smoker Past Alcohol Use History: None Reported Past Drug Use History: Marijuana General Exam - General Exam Comments Initial Comments: Constitutional: NAD, AOX3, Pt has pleasant affect. HEENT: NC/AT, trachea midline, neck supple, no lymphadenopathy. Posterior pharynx non erythematous, without exudates. External ears appear normal, without discharge. Mucous membranes moist. Eyes PERRLA, EOM intact. There is no scleral icterus. No pallor noted. Cardiopulmonary: RRR, no murmurs, rubs or gallops, no JVD noted. Lungs CTAB in anterior and posterior rojas. No peripheral edema. Abdominal exam: Abdomen soft and non-distended. Abdomen non-tender to palpation in all 4 quadrants. Bowel sounds active in LLQ. No hepatosplenomegaly. No ecchymosis. Incision site clean, dry, no erythema, no streaking, no discharge or drainage. Neuro: CN II-XII grossly intact. No nuchal rigidity. MSK: No posterior calf tenderness bilaterally, homans sign negative bilaterally. Posterior tibialis and radial pulse +2 bilaterally. Sensation intact in upper and lower extremities. Full active ROM in upper and lower extremities, 5/5 stregnth. Gu: Testicles nontender bilaterally, no high riding testicle, no blue dot sign, cremasteric reflex intact bilaterally. No lesions, no ulcerations. Mild amount of ecchymoses noted on scrotum bilaterally. Limitations: no limitations Course Vital Signs 03/11/19 00:37 Temperature 97.9 F Pulse Rate 79 Respiratory 20 Rate Blood Pressure 119/70 O2 Sat by Pulse 97 Oximetry Medical Decision Making - Medical Decision Making 28-year-old male patient past medical history left inguinal hernia repair on 03/07/2019 [facility] ED with pain in his scrotum bilaterally. Patient worse and he has a pain in his scrotum since the initial surgery. Patient has been seen 2 prior times for this. Patient was evaluated today at [facility]. Due to limitation of ultrasound patient was transferred to [facility] ED via p rivate vehicle noted to have an ultrasound to rule out testicular torsion. Denies any other complaints today. Patient denies any chest pain shortness of breath abdominal pain nausea vomiting diarrhea, fevers or chills. Patient presents stable, afebrile. Physical exam displayed: Incision site clean, dry, no erythema, no streaking, no discharge or drainage.Testicles nontender bilaterally, no high riding testicle, no blue dot sign, cremasteric reflex intact bilaterally. No lesions, no ulcerations. Mild amount of ecchymoses noted on scrotum bilaterally. Ultrasound of scrotum revealed no acute pathology, no evidence of testicular torsion. Patient discharged. Patient will follow-up with surgeon and wanted 2 days. Patient returned ER physician worsens in any way. Case discussed with Dr. John. Disposition Clinical Impression: Post-operative pain Disposition: HOME SELF-CARE Condition: Stable Instructions (If sedation given, give patient instructions): Scrotal Pain (ED) Additional Instructions: Patient to adhere to previously discussed treatment plan and will take medication(s) as directed. Patient to follow up with PCP in 1-2 days. Patient to return to ED if symptoms do not improve. Please follow-up with primary care provider as well as surgeon who performed surgery in 1-2 days. Return to ER if condition worsens. Is patient prescribed a controlled substance at d/c from ED?: No Referrals: Geo Mai MD [Primary Care Provider] - 1-2 days
[2019-03-11 04:40] VITALS: BP 123/73; PULSE 77; RESP 18; TEMP 97
== END 2019-03-11 04:41 | disposition home or self-care (01) ==
LOC: EC 00:25
DX: G89.18 Other acute postprocedural pain (principal); N50.82 Scrotal pain; S30.22XA Contusion of scrotum and testes, initial encounter; Z79.899 Other long term (current) drug therapy; Z88.2 Allergy status to sulfonamides; Z87.891 Personal history of nicotine dependence; Z98.890 Other specified postprocedural states; X58.XXXA Exposure to other specified factors, initial encounter
CPT/HCPCS: 99284 ×2; 96372 ×3; 93975; 76870; J2270

== ENCOUNTER 2019-06-22 18:58 | Emergency (ER) | payer OTHER ==
[2019-06-22 19:18] VITALS: RESP 18
[2019-06-22] MEDS ORDERED: SODIUM CHLORIDE 0.9% 1,000 ML IV STA (19:42)
--- NOTE | 2019-06-22 19:46 | ED ---
General Adult HPI - General Chief complaint: Abdominal Pain Stated complaint: groin pain, post op hernia Sx Time Seen by Provider: 06/22/19 19:29 Source: patient, RN notes reviewed Mode of arrival: ambulatory Limitations: no limitations - History of Present Illness Initial comments: 28-year-old male presents to the emergency department for multiple complaints. Patient's main complaint today seems to be a headache. States it is all over his head and he thinks it is making him nauseous but denies vomiting. States this started at 4:00 this afternoon which was about 3-1/2 hours prior to arrival. States it started just prior to his walk with his child. Patient also complaining of left groin pain. States he had a surgery done for hernia repair about 2 months ago. States he has mesh placed and he does have some tenderness over the mesh site. Denies any edema or erythema. Denies fevers or chills. Denies any testicular pain. Denies any dysuria. Denies any abdominal pain.Patient has no other complaints at this time including shortness of breath, chest pain, abdominal pain, nausea headache, or visual changes. - Related Data Previous Rx's Medication Instructions Recorded Clindamycin [Cleocin] 450 mg PO Q8H 10 Days capsule 06/22/19 Allergies Allergy/AdvReac Type Severity Reaction Status Date / Time Sulfa (Sulfonamide Allergy Rash/Hives Verified 06/22/19 19:49 Antibiotics) Review of Systems ROS Statement: Those systems with pertinent positive or pertinent negative responses have been documented in the HPI. ROS Other: All systems not noted in ROS Statement are negative. Past Medical History Past Medical History: No Reported History Additional Past Medical History / Comment(s): hernia History of Any Multi-Drug Resistant Organisms: None Reported Past Surgical History: Hernia Repair Additional Past Surgical History / Comment(s): wisdom teeth. Past Psychological History: Anxiety, Depression Smoking Status: Former smoker Past Alcohol Use History: None Reported Past Drug Use History: Marijuana General Exam Limitations: no limitations General appearance: alert, in no apparent distress (resting comfortably in bed, ) Head exam: Present: atraumatic, normocephalic, normal inspection Eye exam: Present: normal appearance, PERRL, EOMI. Absent: scleral icterus, conjunctival injection, periorbital swelling ENT exam: Present: normal exam, normal oropharynx, mucous membranes moist, TM's normal bilaterally, normal external ear exam Neck exam: Present: normal inspection, full ROM. Absent: tenderness, meningismus, lymphadenopathy Respiratory exam: Present: normal lung sounds bilaterally. Absent: respiratory distress, wheezes, rales, rhonchi, stridor Cardiovascular Exam: Present: regular rate, normal rhythm, normal heart sounds. Absent: systolic murmur, diastolic murmur, rubs, gallop, clicks GI/Abdominal exam: Present: soft, normal bowel sounds, other (Patient has minimal left groin tenderness without any edema or erythema.). Absent: distended, tenderness, guarding, rebound, rigid, pulsatile mass, hernia (On exam I do not feel an obvious inguinal hernia present. 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 Patient is complaining of a headache and left groin pain. States his headache started about 3-1/2 hours prior to arrival. Also complaining of left groin pain. States this started today as well. States he had a surgery done for hernia repair 2 months ago. Denies any testicular pain or fevers or chills. On exam patient has minimal left groin tenderness without significant bulging noted. No other abdominal tenderness. No neurologic deficits on exam. Patient is well-appearing. CBC does show white blood cell count of 15.8 which could be reactive in nature. CMP unremarkable, mild dehydration, patient given fluids. Urine is negative. CT brain was ordered which shows no acute process. Patient was given Toradol and Reglan. Given complete resolution of symptoms as well as the maximum pain of a 6 out of 10 this is unlikely to be subarachnoid hemorrhage. CT of the abdomen and pelvis was also obtained which showed no acute process. However there is a 1.8 cm diameter soft tissue density immediately medial and anterior to the left inferior epigastric vasculature. Unclear at this point but there is concern for abscess. Therefore patient put on antibiotics. He will follow-up with his surgeon tomorrow. If he has any worsening symptoms he will return here to the ER. - Lab Data Result diagrams: 06/22/19 19:49 06/22/19 19:49 Lab Results 06/22/19 06/22/19 06/22/19 Range/Units 19:49 19:49 19:55 WBC 15.8 H (3.8-10.6) k/uL RBC 4.40 (4.30-5.90) m/uL Hgb 13.8 (13.0-17.5) gm/dL Hct 39.9 (39.0-53.0) % MCV 90.6 (80.0-100.0) fL MCH 31.3 (25.0-35.0) pg MCHC 34.5 (31.0-37.0) g/dL RDW 13.8 (11.5-15.5) % Plt Count 264 (150-450) k/uL Neutrophils % 86 % Lymphocytes % 9 % Monocytes % 3 % Eosinophils % 2 % Basophils % 0 % Neutrophils # 13.6 H (1.3-7.7) k/uL Lymphocytes # 1.3 (1.0-4.8) k/uL Monocytes # 0.5 (0-1.0) k/uL Eosinophils # 0.2 (0-0.7) k/uL Basophils # 0.0 (0-0.2) k/uL Sodium 141 (137-145) mmol/L Potassium 4.0 (3.5-5.1) mmol/L Chloride 104 (98-107) mmol/L Carbon Dioxide 27 (22-30) mmol/L Anion Gap 10 mmol/L BUN 26 H (9-20) mg/dL Creatinine 1.15 (0.66-1.25) mg/dL Est GFR (CKD-EPI)AfAm >90 (>60 ml/min/1.73 sqM) Est GFR (CKD-EPI)NonAf 87 (>60 ml/min/1.73 sqM) Glucose 100 H (74-99) mg/dL Calcium 9.9 (8.4-10.2) mg/dL Total Bilirubin 0.5 (0.2-1.3) mg/dL AST 19 (17-59) U/L ALT 17 L (21-72) U/L Alkaline Phosphatase 53 (38-126) U/L Total Protein 8.0 (6.3-8.2) g/dL Albumin 4.7 (3.5-5.0) g/dL Urine Color Yellow Urine Appearance Clear (Clear) Urine pH 5.5 (5.0-8.0) Ur Specific Webster 1.026 (1.001-1.035) Urine Protein Negative (Negative) Urine Glucose (UA) Negative (Negative) Urine Ketones Negative (Negative) Urine Blood Negative (Negative) Urine Nitrite Negative (Negative) Urine Bilirubin Negative (Negative) Urine Urobilinogen <2.0 (<2.0) mg/dL Ur Leukocyte Esterase Negative (Negative) Disposition Clinical Impression: Headache, Left groin pain Disposition: HOME SELF-CARE Condition: Good Instructions (If sedation given, give patient instructions): Migraine Headache (ED), Groin Pain (ED) Additional Instructions: Please follow up with primary care as well as your surgeon tomorrow. Take antibiotics as directed. Return here to the emergency department if you have any worsening symptoms. Prescriptions: Clindamycin [Cleocin] 450 mg PO Q8H 10 Days capsule Is patient prescribed a controlled substance at d/c from ED?: No Referrals: Geo Mai MD [Primary Care Provider] - 1-2 days Time of Disposition: 22:32
[2019-06-22 20:20] LABS: Basophils % (A) 0 %; Eosinophils # (A) 0.2 k/uL (0-0.7); Eosinophils % (A) 2 %; HCT 39.9 % (39.0-53.0); HGB 13.8 gm/dL (13.0-17.5); Lymphocytes # (A) 1.3 k/uL (1.0-4.8); Lymphocytes % (A) 9 %; MCH 31.3 pg (25.0-35.0); MCHC 34.5 g/dL (31.0-37.0); MCV 90.6 fL (80.0-100.0); Mean Platelet Volume 6.8; Monocytes # (A) 0.5 k/uL (0-1.0); Monocytes % (A) 3 %; Neutrophils # (A) 13.6 k/uL (1.3-7.7); Neutrophils % (A) 86 %; Platelet Count 264 k/uL (150-450); RDW 13.8 % (11.5-15.5); WBC 15.8 k/uL (3.8-10.6)
[2019-06-22 20:24] LABS: ALT 17 U/L (21-72); AST 19 U/L (17-59); African American GFR (CKD) >90 (>60 ml/min/1.73 sqM); Albumin 4.7 g/dL (3.5-5.0); Alkaline Phosphatase 53 U/L (38-126); Anion Gap 10 mmol/L; Blood Urea Nitrogen 26 mg/dL (9-20); Calcium 9.9 mg/dL (8.4-10.2); Carbon Dioxide 27 mmol/L (22-30); Chloride 104 mmol/L (98-107); Glucose 100 mg/dL (74-99); Sodium 141 mmol/L (137-145); Total Bilirubin 0.5 mg/dL (0.2-1.3)
--- NOTE | 2019-06-22 20:40 | CT ---
EXAMINATION: CT brain wo con DATE AND TIME: 06/22/2019 8:19 PM CLINICAL INDICATION: PHH; Pain TECHNIQUE: Standard departmental protocol.; 1097.4; COMPARISON: CT 10/27/2013 FINDINGS: The calvarium is intact. There is no intracranial hemorrhage. There is no intracranial mass or mass effect. No definite new intra-axial or extra-axial attenuation defect. The paranasal sinuses, middle ear cavities, and mastoid sinus air cells are clear. The orbits are unremarkable. IMPRESSION: NO ACUTE PROCESS.
[2019-06-22 20:45] LABS: Appearance,Urine Clear (Clear); Bilirubin,Urine Negative (Negative); Blood,Urine Negative (Negative); Color,Urine Yellow; Glucose,Urine (UA) Negative (Negative); Ketones,Urine Negative (Negative); Leukocyte Esterase,Urine Negative (Negative); Nitrite,Urine Negative (Negative); PH, Urine 5.5 (5.0-8.0); Protein,Urine Negative (Negative); Specific Gravity,Urine 1.026 (1.001-1.035); Urobilinogen,Urine <2.0 mg/dL (<2.0)
--- NOTE | 2019-06-22 20:50 | CT ---
EXAMINATION TYPE: CT abdomen pelvis w con DATE OF EXAM: 06/22/2019 COMPARISON: 03/08/2019 HISTORY: pain at incision site of inguinal hernia repair [address] DLP: 570.8 mGycm Automated exposure control for dose reduction was used. TECHNIQUE: Helical acquisition of images was performed from the lung bases through the pelvis. CONTRAST: Performed without Oral Contrast and with IV Contrast, patient injected with 100 mL of Isovu e 300. FINDINGS: LUNG BASES: No significant abnormality is appreciated. LIVER/GB: No significant abnormality is appreciated. PANCREAS: No significant abnormality is seen. SPLEEN: No significant abnormality is seen. ADRENALS: No significant abnormality is seen. KIDNEYS: No significant abnormality is seen. FREE AIR: No free air is visualized. RETROPERITONEAL ADENOPATHY: None visualized REPRODUCTIVE ORGANS: No significant abnormality is seen URINARY BLADDER: No significant abnormality is seen. PELVIC ADENOPATHY: None visualized. OSSEOUS STRUCTURES: No significant abnormality is seen. BOWEL: No significant abnormality is seen. VASCULATURE: No acute findings. OTHER: Postprocedure left inguinal changes appreciated, including a 1.8 cm mean diameter soft tissue density immediately medial and anterior to the left inferior epigastric vasculature. IMPRESSION: NO ACUTE PROCESS.
[2019-06-22] MEDS ORDERED: METOCLOPRAMIDE 5 MG/ML 2 ML VIAL IVP STA (21:20)
[2019-06-22] MEDS ORDERED: KETOROLAC 30 MG/ML 1 ML VIAL IVP STA (21:20)
[2019-06-22 22:39] VITALS: BP 110/75; PULSE 94; TEMP 98.6
== END 2019-06-22 22:41 | disposition home or self-care (01) ==
LOC: EC 18:58
DX: R10.32 Left lower quadrant pain (principal); R51 Headache; R11.0 Nausea; E86.0 Dehydration; Z87.19 Personal history of other diseases of the digestive system; Z98.890 Other specified postprocedural states; Z87.891 Personal history of nicotine dependence; Z88.2 Allergy status to sulfonamides
CPT/HCPCS: 36415; 80053; 85025; 81003; 70450; 74177; 99284; 96374; 96375; 96361; J2765; J1885; Q9967

== ENCOUNTER 2022-01-30 17:51 | Emergency (ER) | payer OTHER ==
[2022-01-30 18:18] VITALS: BP 111/60; PULSE 78; RESP 18; TEMP 97.9
[2022-01-30] MEDS ORDERED: PROPARACAINE 0.5% OPHTH DROPS 15 ML BTL BOTH EYES STA (19:13)
[2022-01-30] MEDS ORDERED: FLUORESCEIN STRIPS 1 MG STRIP BOTH EYES ONE (19:13)
--- NOTE | 2022-01-30 19:19 | ED ---
Eye Problem HPI - General Chief complaint: Eye Problems Stated complaint: R eye pain & blurred Time Seen by Provider: 01/30/22 19:09 Source: patient Mode of arrival: ambulatory Limitations: no limitations - History of Present Illness Initial comments: This is a pleasant 31-year-old male who presents to the emergency department complaining of right eye pain and blurred vision. Patient states he had shingles in September and went through an entire course of antiviral medication and eyedrops. She states over the past 3 days he has developed a burning sensation to the eye itself and now has blurred vision in his central field of vision. Patient is not a contact lens wearer. He denies any other significant past medical history. Was seen at [facility] for treatment. No headache, no fever or chills, no changes or hearing, no sore throat or difficulty with speech, no neck pain, no chest pain or shortness of breath, no abdominal pain, no nausea or vomiting, no changes in urination or bowel movements, no numbness or tingling, no extremity pain, no skin rashes or lesions. MD chief complaint: eye pain - Related Data Previous Rx's Medication Instructions Recorded Clindamycin [Cleocin] 450 mg PO Q8H 10 Days capsule 06/22/19 Allergies Allergy/AdvReac Type Severity Reaction Status Date / Time Sulfa (Sulfonamide Allergy Rash/Hives Verified 01/30/22 18:15 Antibiotics) Review of Systems ROS Statement: Those systems with pertinent positive or pertinent negative responses have been documented in the HPI. ROS Other: All systems not noted in ROS Statement are negative. Past Medical History Past Medical History: No Reported History Additional Past Medical History / Comment(s): hernia History of Any Multi-Drug Resistant Organisms: None Reported Past Surgical History: Hernia Repair Additional Past Surgical History / Comment(s): wisdom teeth. Past Psychological History: Anxiety, Depression Smoking Status: Never smoker Past Alcohol Use History: None Reported Past Drug Use History: Marijuana General Exam - General Exam Comments Initial Comments: Patient no significant distress. Does not appear to be ill or toxic. Limitations: no limitations General appearance: alert, in no apparent distress Head exam: Present: atraumatic, normocephalic, normal inspection Eye exam: Present: PERRL, EOMI. Absent: conjunctival injection, periorbital swelling, periorbital tenderness Pupils: Present: normal accommodation, other (See nurse's note for visual acuity) Expanded Eyelids: Normal Inspection: Bilateral Pupils: Regular, Round: Bilateral Anterior chamber: Normal Inspection: Bilateral Visual acuity (R) = 20/: 50 Visual acuity (L) = 20/: 30 With correction: No ENT exam: Present: normal exam, mucous membranes moist Neck exam: Present: normal inspection, full ROM. Absent: tenderness, meningismus, lymphadenopathy Respiratory exam: Present: normal lung sounds bilaterally. Absent: respiratory distress, wheezes, rales, rhonchi, stridor Cardiovascular Exam: Present: regular rate, normal rhythm, normal heart sounds. Absent: systolic murmur, diastolic murmur, rubs, gallop, clicks GI/Abdominal exam: Present: soft, normal bowel sounds. Absent: distended, tenderness, guarding, rebound, rigid Extremities exam: Present: normal inspection, full ROM, normal capillary refill. Absent: tenderness, pedal edema, joint swelling, calf tenderness Back exam: Present: normal inspection Neurological exam: Present: alert, oriented X3, CN II-XII intact Psychiatric exam: Present: normal affect, normal mood Skin exam: Present: warm, dry, intact, normal color. Absent: rash Course Vital Signs 01/30/22 18:15 Temperature 97.9 F Pulse Rate 78 Respiratory 18 Rate Blood Pressure 111/60 O2 Sat by Pulse 98 Oximetry Medical Decision Making - Medical Decision Making This patient had some diminished visual acuity with appeared to be an opacity over the right cornea. Patient's slit-lamp examination showed no evidence of hypopyon or hyphema. No significant uptake. No dendrites. Case was discussed in detail with Dr. Solis. Photo was sent to Dr. Solis with the patient's permission. He believes this is a corneal ulceration. Patient will be treated ofloxacin as directed by Dr. Solis, every 30 minutes 2, every hour 6, and every 2 hours until he is seen at the office at 1:30 PM tomorrow. Patient understands this treatment plan. All questions answered. Patient was told to return to the ER for any signs or symptoms worsen. Told to return immediately if any other problems arise. All questions answered. Treatment plan discussed. Patient in agreement Every effort has been made to ensure accuracy of this dictation. However, due to the limitations of electronic medical records and dictation devices, errors in charting still occur. I did discuss the importance of follow-up to include the risk of worsening symptoms and total vision loss. Disposition Clinical Impression: Corneal ulcer of right eye Disposition: HOME SELF-CARE Condition: Stable Instructions (If sedation given, give patient instructions): Corneal Ulcer (ED) Additional Instructions: Use the eyedrops, 1 drop every 30 minutes for 2 hours, then 1 drop every hour for 6 hours, then 1 drop every 2 hours until you see the hoisting pile driving engineer tomorrow at 1:30 PM. Call [facility] at 8 AM to ensure that you confirmed at 1:[address] [facility] Return to the ER in the interim if any symptoms worsen or any other problems arise. Is patient prescribed a controlled substance at d/c from ED?: No Referrals: Cristian Solis DO [Doctor of Osteopathic Medicine] - 01/31/22 1:30 pm Time of Disposition: 20:02
[2022-01-30] MEDS ORDERED: OFLOXACIN 0.3% OPHTH DROPS 5 ML BOTTLE RIGHT EYE STA (19:46)
== END 2022-01-30 20:14 | disposition home or self-care (01) ==
LOC: EC 17:51
DX: H16.001 Unspecified corneal ulcer, right eye (principal); F41.9 Anxiety disorder, unspecified; F32.A Depression, unspecified; F12.90 Cannabis use, unspecified, uncomplicated; Z88.2 Allergy status to sulfonamides
CPT/HCPCS: 99283